=== PATIENT | female | born 1955 | race Caucasian/White ===

== ENCOUNTER 2022-05-06 22:53 | Emergency (ER) | payer MEDICARE, MEDICAID | END 2022-05-07 00:35 | disposition home or self-care (01) | LOC: JP.ED 22:53 → MERGE 22:53 → JP.ED 05-07 00:35 | DX: K04.7 Periapical abscess without sinus (principal); K02.9 Dental caries, unspecified; E03.9 Hypothyroidism, unspecified; Z87.891 Personal history of nicotine dependence; Z88.5 Allergy status to narcotic agent; Z88.6 Allergy status to analgesic agent; Z79.899 Other long term (current) drug therapy | CPT/HCPCS: 99282 ==

== ENCOUNTER 2024-08-06 20:03 | Emergency (ER) | payer MEDICARE, MEDICAID | END 2024-08-06 21:50 | disposition home or self-care (01) | LOC: JP.ED 20:03 | DX: F32.A Depression, unspecified (principal); F11.10 Opioid abuse, uncomplicated; E03.9 Hypothyroidism, unspecified; Z79.890 Hormone replacement therapy; Z87.891 Personal history of nicotine dependence; Z79.899 Other long term (current) drug therapy; Z88.5 Allergy status to narcotic agent | CPT/HCPCS: 99282 ==